=== PATIENT | male | born 1945 | race Two or more races ===

== ENCOUNTER 2021-03-21 11:00 | Emergency (ER) | payer MEDICARE, MEDICAID ==
[~2021-03-21] VITALS: Ht 175.3 cm; Wt 93.0 kg
[2021-03-21 11:31] VITALS: BP 142/90
[2021-03-21] MEDS ORDERED: AMOX-277 PO (11:59)
== END 2021-03-21 12:30 | disposition home or self-care (01) ==
LOC: ER 11:00
DX: H66.92 Otitis media, unspecified, left ear (principal)

== ENCOUNTER 2022-07-14 12:48 | Emergency (ER) | payer MEDICARE, MEDICAID ==
[~2022-07-14] VITALS: Ht 170.2 cm; Wt 90.6 kg
[~2022-07-14 12:48] MED LIST: AMOX875T4 PO
[2022-07-14 13:52] VITALS: BP 136/76
[2022-07-14 13:54] LABS: Basophils # (auto) 0 10 ^3/uL (0-0.2); Basophils % (auto) 0.4 % (0.0-2.0); Eosinophils # (auto) 0.3 10 ^3/uL (0-0.8); Eosinophils % (auto) 2.9 % (0.0-7.0); Hematocrit 47.2 % (41.0-53.0); Hemoglobin 16.2 g/dL (13.5-17.5); Lymphocytes # (auto) 2.1 10 ^3/uL (0.4-5.4); Lymphocytes % (auto) 22.7 % (10.0-50.0); Mean Corpuscular Hemoglobin 32.7 pg (28.0-32.0); Mean Corpuscular Hgb Conc. 34.3 g/dL (32.0-36.0); Mean Corpuscular Volume 95.3 fL (80.0-100.0); Monocytes # (auto) 0.7 10 ^3/uL (0-1.3); Monocytes % (auto) 7.6 % (0.0-12.0); Neutrophils # (auto) 6.1 10 ^3/uL (1.6-8.6); Neutrophils % (auto) 66.4 % (37.0-80.0); Nucleated Red Blood Cells % 0.2 %; Red Blood Cells 4.95 10^6/uL (4.5-5.90); Red Cell Distribution Width 13.6 % (11.8-14.3); White Blood Cell 9.2 10^3/uL (4.4-10.8)
[2022-07-14 14:51] LABS: Albumin 4.1 g/dL (3.4-5.0); Calcium 8.8 mg/dL (8.5-10.1); Potassium 3.8 mmol/L (3.5-5.1)
[2022-07-14 14:55] LABS: BUN/Creatinine Ratio 17.9 (10.0-20.0); Bilirubin, Total 0.8 mg/dL (0.2-1.0)
[2022-07-14] MEDS ORDERED: DexAMETHasone SOD PHOS 10MG/1ML VIAL INJ IM ONE (16:00)
[2022-07-14] MEDS ORDERED: KETOROLAC TROMETH 60MG/2ML VIAL IM ONE (16:00)
[2022-07-14] MEDS ORDERED: INDO50CA82 PO (16:12)
[2022-07-14] MEDS ORDERED: COLC1CAP PO (16:12)
== END 2022-07-14 16:52 | disposition home or self-care (01) ==
LOC: ER 12:48
DX: M10.9 Gout, unspecified (principal); Z79.899 Other long term (current) drug therapy
CPT/HCPCS: 36415; 73630; 80053; 83605; 84550; 85025; 85652; 87040; 96372; 99284; J1100; J1885

== ENCOUNTER 2023-07-14 17:00 | Emergency (ER) | payer MEDICARE, MEDICAID ==
[~2023-07-14] VITALS: Ht 175.3 cm; Wt 90.4 kg
[~2023-07-14 17:00] MED LIST changes: +COLC1CAP PO; +INDO50CA82 PO
[2023-07-14 18:15] VITALS: BP 128/77; PULSE 88; RESP 17; O2SAT 97
[2023-07-14 18:25] VITALS: TEMP 97.7
[2023-07-14] MEDS: IBUPROFEN 600 MG TAB PO ONE (18:25)
== END 2023-07-14 19:34 | disposition home or self-care (01) ==
LOC: ER 17:03
DX: S80.01XA Contusion of right knee, initial encounter (principal); W22.8XXA Striking against or struck by other objects, initial encounter; Y93.89 Activity, other specified; Y92.89 Other specified places as the place of occurrence of the external cause; Y99.8 Other external cause status
CPT/HCPCS: 73562

== ENCOUNTER 2024-03-19 22:08 | Inpatient (IN) | payer MEDICARE, MEDICAID ==
[~2024-03-19] VITALS: Ht 175.3 cm; Wt 90.0 kg
--- NOTE | 2024-03-19 22:35 | ED.PDOC ---
Musculoskeletal HPI Comments HPI: Poor Historian. 78-year-old male presents to emergency department for two day history of left ankle left foot pain and swelling. Denies any other associated symptoms. Patient is said having similar symptoms in the past and he was told he has gout and was given one-week treatment. Past Medcial History: Hepatitis A. Hepatitis-B. Past Surgical History: Denies any REVIEW OF SYSTEMS: CONSTITUTIONAL: Denies acute: fever, diaphoresis, chills, generalized weakness. HEAD: Denies acute: headache, photophobia Eyes: Denies acute: Double vision, vision loss, eye pain, eye discharge. EARS: Denies acute: tinnitus, hearing loss, ear discharge, ear pain, THROAT: Denies acute: sore throat, swelling, difficulty swallowing , pain with swallowing, change in voice. NECK: Denies acute: neck pain, neck swelling, stiff neck. HEART: Denies acute : chest pain, palpitations, LUNGS: Denies acute: SOB, wheezing, cough, hemoptysis ABDOMEN: Denies acute: abdominal pain, Nausea, Vomiting, diarrhea, melena , hematemesis, hematochezia SKIN: Denies acute: rash, redness, lesions, itchiness. EXTREMITIES: Denies acute: calf pain, numbness, tingling, weakness, Denies acute: Low back pain. Neuro: Denies acute: focal neurological deficit, motor or sensory focal neurological deficit, tremors, seizure like activity, confusion, dizziness, change in mental status, loss of bowel or bladder function, cauda equina like symptoms. : Denies acute: dysuria, hematuria, flank pain, increase in urinary frequency. PSYCH: Denies acute: hallucination, suicidal ideation, homicidal ideation. PHYSICAL EXAM: General: no acute distress, awake and alert. Head: normocephalic, atraumatic. Neck: supple, trachea is midline, no swelling. Throat: Normal phonation. Eyes:, no erythema, no purulent discharge, no proptosis, no icterus. Heart: regular rate, regular rhythm, no significant murmur appreciated. Lungs: no apparent respiratory distress, Able to speak in full sentences. No wheezing, no rhonchi, no crackles. No stridors Clear to auscultation bilaterally. Abdomen: non tender to palpation, non distended, soft, no guarding, no rebound, + bowel sounds. Neuro: Awake, Alert, oriented to name, self, situation, follows commands GCS=15. Speech is normal. Skin: no petechia, no purpura, no cyanosis, non-pale, not jaundice. Evaluation of the left ankle and foot where his complaint isL noted pitting edema 2/4. Patient is neurovascularly intact in the affected extremity. Pedal pulses palpable. Sensation and motor is present. Noted nonspecific tenderness to palpation over the medial and lateral aspect of the malleoli and medial midfoot. Mild generalized erythema. Makes eye contact. moves all four extremities. Face: no apparent facial droop. Ambulating in the ED independently. Chief Complaint: Extremity Swelling Time Seen by MD: 22:25 Primary Care Provider: NONE Reviewed Notes: Nurses Notes, Medications, Allergies Allergies: Coded Allergies: NO KNOWN ALLERGIES (Unverified , 03/21/21) Home Meds Active Scripts Colchicine (Colchicine) 0.6 Mg Cap, 0.6 MG PO BID, #30 CAP Prov:WENDY ROJAS 07/14/22 Indomethacin (Indomethacin) 50 Mg Cap, 1 CAP PO TID, #30 CAP Prov:WENDY ROJAS 07/14/22 Amoxicillin & Pot Clavulanate (Amoxicillin/Potassium Cla) 875 Mg Tab, 875 MG PO BID for 5 Days, #10 TAB 0 Refills Prov:KESHAV MCKEONP 03/21/21 Information Source: Patient Location: Left Past Medical History PAST MEDICAL HISTORY: Denies Surgical History: Denies all surgeries Family History Family History: Reviewed,noncontributory to illness Social History Smoker: Non-Smoker Alcohol: Denies ETOH Use Drugs: Denies Drug Use Lives In: Home Was a procedure done? Was a procedure done?: No Differential Diagnosis EXT Differential Diagnosis: Septic, Neurovascular injury, Arthritis, Bursitis, Other (Leg swellingDdx include but not limited to DVT, ischemic limb, pitting edema, volume overload, CHF, cellulitis, hematoma, compartment syndrome, dependent edema, venous stasis.) Other Differential Diagnosis Osteomyelitis, septic joint, gout X-Ray, Labs, Meds, VS Vital Signs Date Time Temp Pulse Resp B/P (MAP) Pulse Ox O2 Delivery O2 Flow Rate FiO2 03/19/24 22:32 98.3 79 16 153/93 (113) 94 Lab Test 03/19/24 22:45 Range/Units White Blood Count 11.5 H 4.4-10.8 10^3/uL Red Blood Count 4.64 4.5-5.90 10^6/uL Hemoglobin 15.1 13.5-17.5 g/dL Hematocrit 43.7 41.0-53.0 % Mean Corpuscular Volume 94.1 80.0-100.0 fL Mean Corpuscular Hemoglobin 32.5 H 28.0-32.0 pg Mean Corpuscular Hemoglobin Concent 34.6 32.0-36.0 g/dL Red Cell Distribution Width 12.8 11.8-14.3 % Platelet Count 231 140-450 10^3/uL Mean Platelet Volume 7.8 6.9-10.8 fL Neutrophils (%) (Auto) 67.4 37.0-80.0 % Lymphocytes (%) (Auto) 20.3 10.0-50.0 % Monocytes (%) (Auto) 9.2 0.0-12.0 % Eosinophils (%) (Auto) 2.2 0.0-7.0 % Basophils (%) (Auto) 0.9 0.0-2.0 % Neutrophils # (Auto) 7.8 1.6-8.6 10 ^3/uL Lymphocytes # (Auto) 2.3 0.4-5.4 10 ^3/uL Monocytes # (Auto) 1.1 0-1.3 10 ^3/uL Eosinophils # (Auto) 0.3 0-0.8 10 ^3/uL Basophils # (Auto) 0.1 0-0.2 10 ^3/uL Nucleated Red Blood Cells 0.1 % Erythrocyte Sedimentation Rate 26 H 0-20 mm/hr Sodium Level 142 136-145 mmol/L Potassium Level 3.8 3.5-5.1 mmol/L Chloride Level 109 H 98-107 mmol/L Carbon Dioxide Level 22 20-31 mmol/L Anion Gap 11 5-15 Blood Urea Nitrogen 18 9-23 mg/dL Creatinine 0.99 0.700-1.30 mg/dL Glomerular Filtration Rate Calc 77 >90 mL/min BUN/Creatinine Ratio 18.2 10.0-20.0 Serum Glucose 104 74-106 mg/dL Lactic Acid Level 0.8 0.4-2.0 mmol/L Uric Acid 6.8 3.7-9.2 mg/dL Calcium Level 10.2 8.7-10.4 mg/dL Total Bilirubin 0.7 0.2-1.0 mg/dL Aspartate Amino Transferase (AST) 21 13-40 U/L Alanine Aminotransferase (ALT) 17 7-40 U/L Alkaline Phosphatase 102 46-116 U/L Troponin I High Sensitivity 3 L </=54 ng/L C-Reactive Protein High Sensitivity 6.82 H <1.0 mg/dL B-Type Natriuretic Peptide 42.65 0-100 pg/mL Total Protein 7.2 5.7-8.2 g/dL Albumin 4.8 3.2-4.8 g/dL Time of 1ST Reevaluation: 02:59 Reevaluation 1ST: Unchanged Patient Education/Counseling: Diagnosis, Treatment Family Education/Counseling: Other Comments Patient presented with the above HPI.---leg swelling pain erythema---workup was initiated. patient was found with the above mentioned diagnosis. the following medications were ordered: please refer to order lists of meds and tests obtained by myself Dr. Patel. Patient ED course and VS have been stabilized. Patient has been reassessed in the ED and remained in a stable condition. Pertinent incidental findings were discussed with the patient and/or family. Patient/family voices understanding and is agreeable with plan. Patient has been observed in the ED adequate length of time to insure improvement/stability. Escalation of care considered: Consideration of escalation to observation or admission Patient was ADMITTED to the medicine team for further evaluation and treatment of their presentation. All the reports of any imaging studies that were ordered by myself were reviewed by myself. Departure 1 Departure Time of Disposition: 00:36 Impression: Primary Impression: Cellulitis of foot Disposition: 09 ADMITTED INPATIENT Admit to: Tele Condition: Guarded Discharged With: Self Critical Care Note Critical Care Time?: No MATT PATEL DO Mar 19, 2024 22:35
[2024-03-19 23:16] LABS: Basophils # (auto) 0.1 10 ^3/uL (0-0.2); Basophils % (auto) 0.9 % (0.0-2.0); Eosinophils # (auto) 0.3 10 ^3/uL (0-0.8); Eosinophils % (auto) 2.2 % (0.0-7.0); Hematocrit 43.7 % (41.0-53.0); Hemoglobin 15.1 g/dL (13.5-17.5); Lymphocytes # (auto) 2.3 10 ^3/uL (0.4-5.4); Lymphocytes % (auto) 20.3 % (10.0-50.0); Mean Corpuscular Hemoglobin 32.5 pg (28.0-32.0); Mean Corpuscular Hgb Conc. 34.6 g/dL (32.0-36.0); Mean Corpuscular Volume 94.1 fL (80.0-100.0); Monocytes # (auto) 1.1 10 ^3/uL (0-1.3); Monocytes % (auto) 9.2 % (0.0-12.0); Neutrophils # (auto) 7.8 10 ^3/uL (1.6-8.6); Neutrophils % (auto) 67.4 % (37.0-80.0); Nucleated Red Blood Cells % 0.1 %; Platelet Count (auto) 231 10^3/uL (140-450); Red Blood Cells 4.64 10^6/uL (4.5-5.90); Red Cell Distribution Width 12.8 % (11.8-14.3); White Blood Cell 11.5 10^3/uL (4.4-10.8)
--- NOTE | 2024-03-19 23:20 | DVH ---
CLINICAL INDICATION: pain swelling TECHNIQUE: XY L ANKLE 3 VIEW Comparison: None FINDINGS: IMPRESSION: No oseous or joint abnormality with no fracture or dislocation.
--- NOTE | 2024-03-19 23:21 | DVH ---
CLINICAL INDICATION: pain swelling TECHNIQUE: XY L FOOT 3 VIEW XRAY Comparison: XY L FOOT 3 VIEW XRAY on DOS: 07/14/22 FINDINGS: IMPRESSION: No significant oseous or joint abnormality with no fracture or dislocation.
[2024-03-19 23:23] LABS: Alanine Aminotransferase 17 U/L (7-40); Alkaline Phosphatase 102 U/L (46-116); Anion Gap 11 (5-15); Aspartate Aminotransferase 21 U/L (13-40); BUN/Creatinine Ratio 18.2 (10.0-20.0); Bilirubin, Total 0.7 mg/dL (0.2-1.0); Blood Urea Nitrogen 18 mg/dL (9-23); Calcium 10.2 mg/dL (8.7-10.4); Carbon Dioxide 22 mmol/L (20-31); Glucose 104 mg/dL (74-106); Potassium 3.8 mmol/L (3.5-5.1); Sodium 142 mmol/L (136-145); Total Protein 7.2 g/dL (5.7-8.2); Uric Acid 6.8 mg/dL (3.7-9.2)
[2024-03-19 23:40] LABS: Albumin 4.8 g/dL (3.2-4.8); Chloride 109 mmol/L (98-107)
[2024-03-20 00:05] LABS: CRP High Sensitivity 6.82 mg/dL (<1.0)
[2024-03-20 01:02] LABS: Erythrocyte Sedimentation Rate 26 mm/hr (0-20)
--- NOTE | 2024-03-20 02:36 | DVH ---
Examination: LLDVT CLINICAL INDICATION: pain swelling COMPARISON: None. TECHNIQUE: Using real-time ultrasonic imaging and color Doppler, the deep venous system of the left lower extremity was studied carefully. FINDINGS: Examination of the left common femoral vein, deep femoral vein, the proximal, middle and d istal segments of the left superficial femoral vein, popliteal vein and left posterior tibial vein re veal normal phasicity, full compression and augmentation. No thrombus is visualized in the images pedro bmitted. IMPRESSION: No evidence of deep or superficial venous thrombosis of left lower extremity could be id entified. Electronically Signed 03/20/2024 02:35 Rachel Bui
[2024-03-20] MEDS ORDERED: ONDANSETRON HCL 4 MG/2 ML VIAL IV PRN (04:15)
[2024-03-20] MEDS ORDERED: ACETAMINOPHEN 325 MG TAB PO PRN (04:15)
--- NOTE | 2024-03-20 04:17 | DVHHP2 ---
History of Present Illness Reason for Visit: Foot swelling History of Present Illness 78-year-old male presents for evaluation of foot swelling. Patient presents with a two day history of left foot swelling. He states it is swollen with redness and mild tenderness. Denies trauma to the area or insect bite. Denies fever or chills. No other acute complaints reported. Past Medical History Hepatitis Past Surgical History Denies Family History Noncontributory Smoke: No ALCOHOL: none Drugs: None Lives: with Family Review of Systems Review of Systems Review of systems are currently negative otherwise addressed in HPI. Allergies: Coded Allergies: NO KNOWN ALLERGIES (Unverified , 03/21/21) Medications Current Medications Medications Dose Ordered Sig/Catarina Route Start Time Stop Time Status Last Admin Dose Admin Clindamycin Phosphate 50 ml @ 50 mls/hr Q8HR IV 03/20/24 06:00 UNV Acetaminophen/ Hydrocodone Bitart 1 tab Q4HP PRN PO 03/20/24 04:15 UNV Ondansetron HCl 4 mg Q4HP PRN IV 03/20/24 04:15 UNV Enoxaparin Sodium 40 mg DAILY SC 03/20/24 10:00 UNV Acetaminophen 650 mg Q6HP PRN PO 03/20/24 04:15 UNV Exam Vital Signs Vital Signs Date Time Temp Pulse Resp B/P (MAP) Pulse Ox O2 Delivery O2 Flow Rate FiO2 03/19/24 22:32 98.3 79 16 153/93 (113) 94 Exam Gen: 78-year-old male in no apparent distress Skin: Warm, dry, normal color and texture, no rash. HEENT: Normocephalic atraumatic, mucous membranes moist and pink. Neck: Cervical and supraclavicular nodes normal without enlargement, trachea is midline, thyroid gland is normal without masses. Pulmonary: Clear to auscultation and percussion bilaterally. Cardiac: Regular rate and rhythm. No murmur Abdomen: Soft, nontender, nondistended, bowel sounds present all 4 quadrants, no guarding, no rigidity, no organomegaly. Extremities: No cyanosis, clubbing, left foot with swelling and erythema with positive distal pulses. Neuro: Cranial nerves II through XII grossly intact, normal affect and speech, no focal motor deficits. Labs/Xrays ORDERING PHYSICIAN: MATT THACKER DO PROCEDURE(s): LANKL - L ANKLE 3 VIEW REASON: pain swelling ORDER NUMBER(s): [id number], ACCESSION NUMBER(s): [id number] CLINICAL INDICATION: pain swelling TECHNIQUE: XY L ANKLE 3 VIEW Comparison: None FINDINGS: IMPRESSION: No oseous or joint abnormality with no fracture or dislocation. RING PHYSICIAN: MATT THACKER DO PROCEDURE(s): LFOOT - L FOOT 3 VIEW XRAY REASON: pain swelling ORDER NUMBER(s): [id number], ACCESSION NUMBER(s): [id number] CLINICAL INDICATION: pain swelling TECHNIQUE: XY L FOOT 3 VIEW XRAY Comparison: XY L FOOT 3 VIEW XRAY on DOS: 07/14/22 FINDINGS: IMPRESSION: No significant oseous or joint abnormality with no fracture or dislocation. RING PHYSICIAN: MATT THACKER DO PROCEDURE(s): LLDVT - LT Lower DVT REASON: pain swelling ORDER NUMBER(s): [id number], ACCESSION NUMBER(s): [id number] Examination: LLDVT CLINICAL INDICATION: pain swelling COMPARISON: None. TECHNIQUE: Using real-time ultrasonic imaging and color Doppler, the deep venous system of the left lower extremity was studied carefully. FINDINGS: Examination of the left common femoral vein, deep femoral vein, the proximal, middle and distal segments of the left superficial femoral vein, popliteal vein and left posterior tibial vein reveal normal phasicity, full compression and augmentation. No thrombus is visualized in the images submitted. IMPRESSION: No evidence of deep or superficial venous thrombosis of left lower extremity could be identified. Electronically Signed 03/20/2024 02:35 Rachel Bui Labs Test 03/19/24 22:45 Range/Units White Blood Count 11.5 H 4.4-10.8 10^3/uL Red Blood Count 4.64 4.5-5.90 10^6/uL Hemoglobin 15.1 13.5-17.5 g/dL Hematocrit 43.7 41.0-53.0 % Mean Corpuscular Volume 94.1 80.0-100.0 fL Mean Corpuscular Hemoglobin 32.5 H 28.0-32.0 pg Mean Corpuscular Hemoglobin Concent 34.6 32.0-36.0 g/dL Red Cell Distribution Width 12.8 11.8-14.3 % Platelet Count 231 140-450 10^3/uL Mean Platelet Volume 7.8 6.9-10.8 fL Neutrophils (%) (Auto) 67.4 37.0-80.0 % Lymphocytes (%) (Auto) 20.3 10.0-50.0 % Monocytes (%) (Auto) 9.2 0.0-12.0 % Eosinophils (%) (Auto) 2.2 0.0-7.0 % Basophils (%) (Auto) 0.9 0.0-2.0 % Neutrophils # (Auto) 7.8 1.6-8.6 10 ^3/uL Lymphocytes # (Auto) 2.3 0.4-5.4 10 ^3/uL Monocytes # (Auto) 1.1 0-1.3 10 ^3/uL Eosinophils # (Auto) 0.3 0-0.8 10 ^3/uL Basophils # (Auto) 0.1 0-0.2 10 ^3/uL Nucleated Red Blood Cells 0.1 % Erythrocyte Sedimentation Rate 26 H 0-20 mm/hr Sodium Level 142 136-145 mmol/L Potassium Level 3.8 3.5-5.1 mmol/L Chloride Level 109 H 98-107 mmol/L Carbon Dioxide Level 22 20-31 mmol/L Anion Gap 11 5-15 Blood Urea Nitrogen 18 9-23 mg/dL Creatinine 0.99 0.700-1.30 mg/dL Glomerular Filtration Rate Calc 77 >90 mL/min BUN/Creatinine Ratio 18.2 10.0-20.0 Serum Glucose 104 74-106 mg/dL Lactic Acid Level 0.8 0.4-2.0 mmol/L Uric Acid 6.8 3.7-9.2 mg/dL Calcium Level 10.2 8.7-10.4 mg/dL Total Bilirubin 0.7 0.2-1.0 mg/dL Aspartate Amino Transferase (AST) 21 13-40 U/L Alanine Aminotransferase (ALT) 17 7-40 U/L Alkaline Phosphatase 102 46-116 U/L Troponin I High Sensitivity 3 L </=54 ng/L C-Reactive Protein High Sensitivity 6.82 H <1.0 mg/dL B-Type Natriuretic Peptide 42.65 0-100 pg/mL Total Protein 7.2 5.7-8.2 g/dL Albumin 4.8 3.2-4.8 g/dL Assessment/Plan Assessment/Plan Assessment Left foot cellulitis SIRS Plan Admit the patient to [facility] surge to the hospitalist Blood culture pending Clindamycin IV Continue treatment per orders Plan discussed with: Patient My Orders Orders - DENISE HARO Procedure Category Date Status Time Blood Culture VEDA 03/20/24 Logged 04:08 Clindamycin 600mg Iv PHA 03/20/24 Logged (Cleocin Iv) 06:00 Regular Diet DIET 03/20/24 Transmitted Breakfast Basic Metabolic Panel LAB 03/21/24 Verified 04:00 Admit ADMIT 03/20/24 Transmitted 04:08 Hydrocodone-Acet PHA 03/20/24 Logged 5/325mg Tab ([place] 04:15 Ondansetron Hcl PHA 03/20/24 Logged (Zofran) 04:15 Enoxaparin Sodium PHA 03/20/24 Logged (Lovenox) 10:00 Complete Blood Count LAB 03/21/24 Verified 04:00 Condition: Stable ELIZABETH 03/20/24 In Process 04:08 Acetaminophen Tablet PHA 03/20/24 Logged (Tylenol Tablet) 04:15 Bedrest With Bathroom ELIZABETH 03/20/24 In Process Privileg 04:08 Date of Service: Mar 20, 2024 Billing Provider: DENISE HARO Common Visit Codes: [id number] INP/OBS CARE (MOD) DENISE HARO Mar 20, 2024 04:17
[2024-03-20] MEDS: CLINDAMYCIN 900MG IV 50 ML IV ONE (06:20)
[2024-03-20 06:32] VITALS: PULSE 80; RESP 18; O2SAT 96
[2024-03-20] MEDS: CLINDAMYCIN 600MG IV 50 ML IV SCH (08:00)
[2024-03-20] MEDS: ENOXAPARIN SOD 40 MG/0.4 ML SYRINGE SC SCH (20:11)
[2024-03-20 21:13] VITALS: BP 134/70; PULSE 73; RESP 18; TEMP 98.8; O2SAT 94
[2024-03-20 22:00] VITALS: BP 134/70; PULSE 73; RESP 18; TEMP 98.8; O2SAT 94
[2024-03-20] MEDS: HYDROcodone-ACET 5/325MG TAB PO PRN (22:05)
[2024-03-21 01:00] VITALS: BP 131/77; PULSE 67; RESP 18; TEMP 98; O2SAT 93
[2024-03-21 05:00] VITALS: BP 118/70; PULSE 67; RESP 18; TEMP 98.2; O2SAT 94
[2024-03-21 08:39] LABS: Anion Gap 8 (5-15); Carbon Dioxide 27 mmol/L (20-31); Chloride 106 mmol/L (98-107); Potassium 3.9 mmol/L (3.5-5.1); Sodium 141 mmol/L (136-145)
[2024-03-21 08:40] LABS: Calcium 9.7 mg/dL (8.7-10.4)
[2024-03-21 08:45] LABS: BUN/Creatinine Ratio 17.9 (10.0-20.0); Blood Urea Nitrogen 17 mg/dL (9-23); Glucose 98 mg/dL (74-106)
[2024-03-21 08:48] LABS: Basophils # (auto) 0.1 10 ^3/uL (0-0.2); Basophils % (auto) 0.6 % (0.0-2.0); Eosinophils # (auto) 0.3 10 ^3/uL (0-0.8); Eosinophils % (auto) 3.8 % (0.0-7.0); Hematocrit 41.4 % (41.0-53.0); Hemoglobin 14.3 g/dL (13.5-17.5); Lymphocytes # (auto) 1.9 10 ^3/uL (0.4-5.4); Lymphocytes % (auto) 21.3 % (10.0-50.0); Mean Corpuscular Hemoglobin 32.8 pg (28.0-32.0); Mean Corpuscular Hgb Conc. 34.4 g/dL (32.0-36.0); Mean Corpuscular Volume 95.1 fL (80.0-100.0); Monocytes # (auto) 0.9 10 ^3/uL (0-1.3); Monocytes % (auto) 9.9 % (0.0-12.0); Neutrophils # (auto) 5.8 10 ^3/uL (1.6-8.6); Neutrophils % (auto) 64.4 % (37.0-80.0); Platelet Count (auto) 216 10^3/uL (140-450); Red Blood Cells 4.35 10^6/uL (4.5-5.90); Red Cell Distribution Width 12.9 % (11.8-14.3)
[2024-03-21 09:00] VITALS: BP 129/82; PULSE 72; RESP 18; TEMP 98.1; O2SAT 98
[2024-03-21] MEDS ORDERED: INFLUENZA TRIVALENT 2024-2025 0.5 ML INJ IM ONE (10:00)
[2024-03-21 13:00] VITALS: BP 112/66; PULSE 72; RESP 18; TEMP 97.5; O2SAT 95
[2024-03-21 17:00] VITALS: BP 135/81; PULSE 63; RESP 18; TEMP 97.5; O2SAT 96
--- NOTE | 2024-03-21 17:42 | DVHPN2 ---
Subjective Patient continues to report having swelling and pain was left foot Reviewed: Care Plan, H&P, Labs Changes from previous H/P or p: No Changes General: Per HPI Objective Vitals Vital Signs Date Time Temp Pulse Resp B/P (MAP) Pulse Ox O2 Delivery O2 Flow Rate FiO2 03/21/24 13:00 97.5 72 18 112/66 (81) 95 97.5 03/21/24 08:00 Room Air* 0 21 Intake/Output Intake and Output 03/21/24 07:00 Intake Total 600 ml Balance 600 ml Intake Oral 450 ml IV Total 150 ml # Voids 1 General Appearance: Alert, Oriented X3, Cooperative Lungs: Clear to auscultation, Normal air movement Cardiovascular: Normal S1, Normal S2 Musculoskeletal: Normal sensory function, Normal motor function Extremities: Other (Swelling to left foot) Neuro: Normal gait, Normal speech Psych/Mental Status: Mental status NL, Mood NL Medications Current Medications Medications Dose Ordered Sig/Catarina Route Start Time Stop Time Status Last Admin Dose Admin Clindamycin Phosphate 50 ml @ 50 mls/hr Q8H IV 03/20/24 08:00 03/21/24 08:52 50 MLS/HR Acetaminophen/ Hydrocodone Bitart 1 tab Q4HP PRN PO 03/20/24 04:15 03/20/24 22:05 1 TAB Ondansetron HCl 4 mg Q4HP PRN IV 03/20/24 04:15 Enoxaparin Sodium 40 mg DAILY SC 03/20/24 10:00 Acetaminophen 650 mg Q6HP PRN PO 03/20/24 04:15 Laboratory Results Laboratory Tests 03/21/24 07:39 Chemistry Test 03/21/24 07:39 Calcium Level 9.7 mg/dL (8.7-10.4) Microbiology Microbiology Date/Time Source Procedure Growth Status 03/20/24 07:30 Blood Blood Culture - Preliminary NO GROWTH AFTER 24 HOURS OF INCUBATION. Resulted Labs and/or images reviewed: Labs reviewed by me, Image(s) reviewed by me Assessment/Plan Assessment/Plan Impression: -cellulitis left foot -history of hepatitis Plan: -continue clindamycin, add Rocephin -DVT prophylaxis -reassess for discharge in a.m. Total time spent with patient discussing and formulating plan of care: 35 minutes. This medical document was created using an electronic medical record system with Dragon computerized dictation system. Although this document has been carefully reviewed, there may still be some phonetic and typographical errors. These areas are purely typographical due to imperfections of the software programs, and do not reflect any compromise in the patient's medical care. Plan discussed with: Patient, Other (RN) Date of Service: Mar 21, 2024 Billing Provider: JUAN A RAINES NP Common Visit Codes: [id number] INP/OBS CARE(HIGH) JUAN A RAINES NP Mar 21, 2024 17:42
[2024-03-21] MEDS: cefTRIAXone 1GM/50ML D5W 50 ML IV SCH (19:39)
[2024-03-21 21:00] VITALS: BP 128/74; PULSE 69; RESP 17; TEMP 98; O2SAT 96
[2024-03-22] VITALS (7 sets, daily range): BP systolic 101–124; BP diastolic 39–71; PULSE 52–71; RESP 17–56; TEMP 97.3–98.4; O2SAT 19–97
--- NOTE | 2024-03-22 12:58 | DVHPN2 ---
Reviewed: Care Plan, H&P, Labs Changes from previous H/P or p: No Changes General: Per HPI Objective Vitals Vital Signs Date Time Temp Pulse Resp B/P (MAP) Pulse Ox O2 Delivery O2 Flow Rate FiO2 03/22/24 09:00 97.5 60 18 124/71 (88) 93 97.5 03/22/24 07:48 Room Air* 0 21 Intake/Output Intake and Output 03/22/24 07:00 Intake Total 1540 ml Output Total 350 ml Balance 1190 ml Intake Oral 1440 ml IV Total 100 ml Output Urine Total 350 ml # Voids 1 # Bowel Movements 2 General Appearance: Alert, Oriented X3, Cooperative Lungs: Clear to auscultation, Normal air movement Cardiovascular: Normal S1, Normal S2 Musculoskeletal: Normal sensory function, Normal motor function Extremities: Other (Swelling to left foot) Neuro: Normal gait, Normal speech Psych/Mental Status: Mental status NL, Mood NL Medications Current Medications Medications Dose Ordered Sig/Catarina Route Start Time Stop Time Status Last Admin Dose Admin Clindamycin Phosphate 50 ml @ 50 mls/hr Q8H IV 03/20/24 08:00 03/22/24 08:14 50 MLS/HR Acetaminophen/ Hydrocodone Bitart 1 tab Q4HP PRN PO 03/20/24 04:15 03/21/24 20:44 1 TAB Ondansetron HCl 4 mg Q4HP PRN IV 03/20/24 04:15 Enoxaparin Sodium 40 mg DAILY SC 03/20/24 10:00 03/22/24 08:58 40 MG Acetaminophen 650 mg Q6HP PRN PO 03/20/24 04:15 Ceftriaxone Sodium 50 ml @ 100 mls/hr DAILY@09 IV 03/21/24 17:45 03/22/24 08:14 100 MLS/HR Laboratory Results Laboratory Tests 03/21/24 07:39 Microbiology Microbiology Date/Time Source Procedure Growth Status 03/20/24 07:30 Blood Blood Culture - Preliminary NO GROWTH AFTER 48 HOURS OF INCUBATION. Resulted Labs and/or images reviewed: Labs reviewed by me, Image(s) reviewed by me Assessment/Plan Assessment/Plan Covering for nurse practitioner Thai Salcedo -cellulitis left foot : IV Rocephin clindamycin -history of hepatitis B and C Spoke with niece Darya [phone] Plan discussed with: Patient Date of Service: Mar 22, 2024 Billing Provider: PARISH WHITLEY MD Common Visit Codes: [id number] INP/OBS CARE(HIGH) PARISH WHITLEY MD Mar 22, 2024 12:58
[2024-03-22] MEDS: COLCHICINE 0.6 MG CAP PO ONE (13:25)
[2024-03-22] MEDS: ALLOPURINOL 100 MG TAB PO ONE (13:26)
[2024-03-23] VITALS (8 sets, daily range): BP systolic 106–145; BP diastolic 44–82; PULSE 58–74; RESP 16–18; TEMP 97.4–98.8; O2SAT 93–97
--- NOTE | 2024-03-23 07:54 | DVHPN2 ---
Reviewed: Care Plan, H&P, Labs Changes from previous H/P or p: No Changes General: Per HPI Objective Vitals Vital Signs Date Time Temp Pulse Resp B/P (MAP) Pulse Ox O2 Delivery O2 Flow Rate FiO2 03/23/24 05:00 98.3 66 16 135/82 (99) 93 98.3 03/22/24 20:00 Room Air* 0 21 Intake/Output Intake and Output 03/23/24 07:00 Intake Total 1500 ml Output Total 1275 ml Balance 225 ml Intake Oral 1300 ml IV Total 200 ml Output Urine Total 1275 ml # Voids 3 General Appearance: Alert, Oriented X3, Cooperative Lungs: Clear to auscultation, Normal air movement Cardiovascular: Normal S1, Normal S2 Musculoskeletal: Normal sensory function, Normal motor function Extremities: Other (Swelling to left foot) Neuro: Normal gait, Normal speech Psych/Mental Status: Mental status NL, Mood NL Medications Current Medications Medications Dose Ordered Sig/Catarina Route Start Time Stop Time Status Last Admin Dose Admin Clindamycin Phosphate 50 ml @ 50 mls/hr Q8H IV 03/20/24 08:00 03/23/24 01:13 50 MLS/HR Acetaminophen/ Hydrocodone Bitart 1 tab Q4HP PRN PO 03/20/24 04:15 03/21/24 20:44 1 TAB Ondansetron HCl 4 mg Q4HP PRN IV 03/20/24 04:15 Enoxaparin Sodium 40 mg DAILY SC 03/20/24 10:00 03/22/24 08:58 40 MG Acetaminophen 650 mg Q6HP PRN PO 03/20/24 04:15 Ceftriaxone Sodium 50 ml @ 100 mls/hr DAILY@09 IV 03/21/24 17:45 03/22/24 08:14 100 MLS/HR Allopurinol 300 mg DAILY PO 03/23/24 10:00 Colchicine 0.6 mg DAILY PO 03/23/24 10:00 Laboratory Results Laboratory Tests 03/21/24 07:39 Microbiology Microbiology Date/Time Source Procedure Growth Status 03/20/24 07:30 Blood Blood Culture - Preliminary NO GROWTH AFTER 72 HOURS OF INCUBATION. Resulted Labs and/or images reviewed: Labs reviewed by me, Image(s) reviewed by me Assessment/Plan Assessment/Plan Covering for nurse practitioner Thai Salcedo -cellulitis left foot : Rocephin 1 g IV daily, clindamycin 300 mg IV q.8 hours for two weeks Gout flare-up: Uric acid normal, start back on allopurinol 300 mg p.o. daily, start colchicine 0.6 mg p.o. daily for the pain -history of hepatitis B and C Spoke with laura Lackey [phone] Plan discussed with: Patient My Orders Orders - PARISH WHITLEY MD Procedure Category Date Status Time Allopurinol Tablet PHA 03/23/24 In Process (Zyloprim Tablet) 10:00 Colchicine (Colcrys) PHA 03/23/24 In Process 10:00 Insert Midline ORDERS 03/22/24 Transmitted 13:04 Pt Request For Service PT 03/22/24 Logged 13:04 Date of Service: Mar 23, 2024 Billing Provider: PARISH WHITLEY MD Common Visit Codes: [id number] INP/OBS CARE(HIGH) PARISH WHITLEY MD Mar 23, 2024 07:54
--- NOTE | 2024-03-23 08:39 | DVHDS2 ---
Discharge Summary Date of Admission Mar 20, 2024 at 04:08 Date of Discharge: Mar 23, 2024 Admitting Diagnosis Pain and swelling left foot Wounds: None Labs/Diagnostic Data: Laboratory Results Test 03/21/24 07:39 03/19/24 22:45 White Blood Count 9.0 10^3/uL (4.4-10.8) Red Blood Count 4.35 10^6/uL (4.5-5.90) Hemoglobin 14.3 g/dL (13.5-17.5) Hematocrit 41.4 % (41.0-53.0) Mean Corpuscular Volume 95.1 fL (80.0-100.0) Mean Corpuscular Hemoglobin 32.8 pg (28.0-32.0) Mean Corpuscular Hemoglobin Concent 34.4 g/dL (32.0-36.0) Red Cell Distribution Width 12.9 % (11.8-14.3) Platelet Count 216 10^3/uL (140-450) Mean Platelet Volume 7.9 fL (6.9-10.8) Neutrophils (%) (Auto) 64.4 % (37.0-80.0) Lymphocytes (%) (Auto) 21.3 % (10.0-50.0) Monocytes (%) (Auto) 9.9 % (0.0-12.0) Eosinophils (%) (Auto) 3.8 % (0.0-7.0) Basophils (%) (Auto) 0.6 % (0.0-2.0) Neutrophils # (Auto) 5.8 10 ^3/uL (1.6-8.6) Lymphocytes # (Auto) 1.9 10 ^3/uL (0.4-5.4) Monocytes # (Auto) 0.9 10 ^3/uL (0-1.3) Eosinophils # (Auto) 0.3 10 ^3/uL (0-0.8) Basophils # (Auto) 0.1 10 ^3/uL (0-0.2) Nucleated Red Blood Cells 0.0 % Sodium Level 141 mmol/L (136-145) Potassium Level 3.9 mmol/L (3.5-5.1) Chloride Level 106 mmol/L (98-107) Carbon Dioxide Level 27 mmol/L (20-31) Anion Gap 8 (5-15) Blood Urea Nitrogen 17 mg/dL (9-23) Creatinine 0.95 mg/dL (0.700-1.30) Glomerular Filtration Rate Calc 81 mL/min (>90) BUN/Creatinine Ratio 17.9 (10.0-20.0) Serum Glucose 98 mg/dL (74-106) Calcium Level 9.7 mg/dL (8.7-10.4) Erythrocyte Sedimentation Rate 26 mm/hr (0-20) Lactic Acid Level 0.8 mmol/L (0.4-2.0) Uric Acid 6.8 mg/dL (3.7-9.2) Total Bilirubin 0.7 mg/dL (0.2-1.0) Aspartate Amino Transferase (AST) 21 U/L (13-40) Alanine Aminotransferase (ALT) 17 U/L (7-40) Alkaline Phosphatase 102 U/L (46-116) Troponin I High Sensitivity 3 ng/L (</=54) C-Reactive Protein High Sensitivity 6.82 mg/dL (<1.0) B-Type Natriuretic Peptide 42.65 pg/mL (0-100) Total Protein 7.2 g/dL (5.7-8.2) Albumin 4.8 g/dL (3.2-4.8) Other Laboratory Tests 03/21/24 07:39 Brief Hx & Hospital Course: 78-year-old male with a history of gout came in complaining of redness pain swelling and left foot for the last three. X-ray left foot negative for any bony changes found to have severe cellulitis of the left foot secondary to flare-up of the gout. Uric acid 6.8 started on allopurinol and colchicine. Patient was started on Rocephin 1 g IV daily and clindamycin 300 mg IV q.8 hours for cellulitis left foot. Patient also drinks beer heavily advised to quit using BR as it might exacerbate gout. 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 Discussed with the patient and his niece Chastity [phone] the patient being discharged to [facility] for IV antibiotics for two weeks Consults/Reason for consult None Operations or Procedures X-ray left foot Condition at Discharge: Fair Final Diagnosis/Problems List Acute cellulitis left foot Gout flare-up History of hep B and hep C History of IV drug abuse 20 years ago Discharge Disposition: [facility] Facility Discharge Instruct/Medications Diet: Regular Activity: Light activity Follow Up/Referral: Follow up with the [facility] Medications: Rocephin 1 g IV daily for two weeks Clindamycin 300 mg IV q.8 hours for two weeks see list for other meds 39 (Time taken for discharge summary 39 minutes) Discharge Statement: "Patient was advised to return to the ER or call 911 if any headaches, dizziness, shortness of breath, chest pain, abdominal pain, bleeding, fevers, or worsening of medical condition. Patient was counseled about treatment plan, medications, possible side effects, patientverbalized understanding. All questions were answered to the best of my ability. This discharge took greater then 30 minutes in planning, reviewing documentation, counseling the patient, and discussing with other team members." ASSESSMENT ASSESSMENT Hospital Course Marginal improvement Assessment Acute cellulitis left foot Gout flare-up History of hep B and hep C History of IV drug abuse 20 years ago Date of Service: Mar 23, 2024 Billing Provider: PARISH WHITLEY MD Common Visit Codes: 10573-JTB/OBS DISCH DAY >30min PARISH WHITLEY MD Mar 23, 2024 08:39
[2024-03-23] MEDS: COLCHICINE 0.6 MG CAP PO SCH (09:22)
[2024-03-23] MEDS: ALLOPURINOL 100 MG TAB PO SCH (09:23)
[2024-03-23 10:58] LABS: COVID19 ANTIGEN SOFIA FIA NEGATIVE (NEGATIVE)
[2024-03-23] MEDS: INFLUENZA TRIVALENT 2024-2025 0.5 ML INJ IM ONE (17:53)
[2024-03-24 01:00] VITALS: BP 136/66; PULSE 70; RESP 18; TEMP 98.1; O2SAT 94
[2024-03-24 05:00] VITALS: BP 128/58; PULSE 63; RESP 18; TEMP 98.2; O2SAT 94
== END 2024-03-24 07:10 | DRG 603 ==
LOC: ER 22:08 → OVERFLOW 03-20 04:08 → WEST WING 03-20 20:50
PROVIDERS: ADMIT Nurse Practitioner; ATTEND Nurse Practitioner Acute Care
PROC: 05HC33Z Insertion of Infusion Device into Left Basilic Vein, Percutaneous Approach (ICD-10-PCS; principal; 2024-03-22)
PROC: B54NZZA Ultrasonography of Left Upper Extremity Veins, Guidance (ICD-10-PCS; 2024-03-22)
DX: L03.116 Cellulitis of left lower limb (principal); M10.9 Gout, unspecified; Z79.899 Other long term (current) drug therapy
CPT/HCPCS: 36415; 73610; 73630; 80048; 80053; 83605; 83880; 84484; 84550; 85025; 85652; 86141; 87040; 87426; 90656; 93971; 97110; 97116; 97163; 97530; G0378; J3490